=== PATIENT | female | born 1950 | race Caucasian/White ===

== ENCOUNTER → 2017-09-11 | Outpatient (CLI) | payer OTHER ==
[~2017-09-11] MED LIST: ALDACTONE25 MG PO; ASPIRIN81 M2 PO; ATORVASTATIN CA40 MG PO; CALCIUM 500 +1 EAC5 PO; CENTRUM SILVER1 EAC4 PO; FISH OIL 1,001000 M2 PO; FORTAMET1000 MG PO; KLOR-CON 1010 MEQ PO; LOTREL 10-20 M1 EACH PO; MOBIC7.5 MG PO; PROZAC20 MG PO; ULTRACET TABLET1 TAB PO
[2017-09-11 12:32] LABS: CALCIUM 9.8 mg/dL (8.5-10.1)
== END ==
LOC: MRI 10:53
PROVIDERS: Surgery
DX: C50.912 Malignant neoplasm of unspecified site of left female breast (principal)

== ENCOUNTER 2017-09-20 05:17 | Day surgery (SDC) | payer OTHER ==
[~2017-09-20] VITALS: Ht 160 cm; Wt 117.9 kg
--- NOTE | ~2017-09-20 | S ---
[facility] [address] [place] [address] SURGICAL PATH RPT PROCEDURE Name: LUIZ MORA [id number] Admission: 09/20/17 Date of : 50 Discharge: 09/20/17 Report #: [id number] Path Case #: [id number] PATHOLOGY REPORT DRAFT COLLECTION DATE: 09/20/2017 RECEIVED DATE: 09/20/2017 SPECIMEN(S) RECEIVED: A.Left breast lumpectomy short superior, long lateral B.Left axillary sentinel lymph node #1 C.Left axillary node adjacent to sentinel node
--- NOTE | ~2017-09-20 | H ---
[facility] [address] HISTORY AND PHYSICAL Name: LUIZ MORA Room #: 150-3 [facility]..#: [id number] Admission: 09/20/17 Attend Phys: Ernst Garcia MD Discharge: Date of : 50 Report #: [id number] THIS REPORT FOR: //name// CC: Ernst Butt DATE OF SERVICE: 09/20/2017 PREOPERATIVE DIAGNOSIS: Recently diagnosed left breast cancer. HISTORY OF PRESENT ILLNESS: The patient is a 67-year-old who was seen in the office middle of August. The patient had an abnormal mammogram. This was located at the 12 o'clock position, fairly high up in the left breast. This was described on mammogram to be 10 cm from the nipple. The patient had an ultrasound also done at the same time. There is shadowing at 12 o'clock position, both of these were felt to be suspicious. The patient has yearly mammogram. She did have a right breast biopsy about 9 years ago, which was benign. The patient does have extensive family history of breast cancer with mom having breast cancer at age 51. did well for 30 years and of unrelated second cancer. There is maternal aunt that had breast cancer at age 81. Maternal uncle had pancreatic cancer, second maternal uncle that had cancer of the urinary tract. There is also cancer on the father's side also. The patient does do self exam, has not noticed any mass. Denies any skin changes, no pain, no discharge. She is not on any hormones. The patient underwent a breast biopsy with ultrasound-guided on 09/03. The patient's path report came back with moderately differentiated invasive ductal carcinoma, grade 2/3. No definitive lymphovascular invasion. This was ER 78%, NC less than 1, Ki-67 of 1%, HER-2 was negative. The patient is here for left lumpectomy and sentinel node biopsy. She did have an MRI that showed a fairly significant size about 5 cm lesion. This was hard to see, a definite mass just distorted area on mammogram. She will have a bracketed localization and lumpectomy. PAST MEDICAL HISTORY: She has high blood pressure and elevated cholesterol. She diabetic, on metformin. PAST SURGICAL HISTORY: Gallbladder 1987, knee replacement in 2007. 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 ALLERGIES: She is not allergic to anything. MEDICATIONS: Lotrel 10/20 mg, Lipitor 40 once a day, Prozac 20 mg a day, Mobic 7.5 mg once a day, potassium chloride 10 mEq once a day, metformin 500 once a day, Ultracet, aspirin, Centrum, calcium, spironolactone. FAMILY HISTORY: Multiple cancers on both sides of the family. Father had septic shock at age 85. Mother ended up having a stomach cancer. [address] [address] HISTORY AND PHYSICAL Name: LUIZ MORA Room #: 150-3 [facility]..#: [id number] Admission: 09/20/17 Attend Phys: Ernst Garcia MD Discharge: Date of : 50 Report #: [id number] REVIEW OF SYSTEMS: No chest pain, shortness of breath, palpitation. The patient has had knee problems and knee replacement. PHYSICAL EXAMINATION: GENERAL: The patient is a well-nourished female, in no acute distress. She is obese. HEENT: Pupils react to light. Extraocular muscles are intact. NECK: Soft and supple, no masses. LUNGS: Clear to auscultation. HEART: Regular rate and rhythm. No murmur or gallop. ABDOMEN: Soft, nondistended, nontender. BREAST: The patient does have a mildly palpable mass in the upper part of the left breast, fairly high up. No axillary adenopathy. No supraclavicular adenopathy. EXTREMITIES: No cyanosis, clubbing or edema. Moves all extremities well. IMPRESSION AND PLAN: The patient is a 67-year-old with recently-diagnosed left breast cancer. The patient does have extensive family history of cancer including breast cancer in mom and maternal aunt. I did discuss with her obtaining a BRCA gene test and the patient would like to proceed with surgery and have that done later. She is not interested in bilateral mastectomy, even if she was BRCA positive. She feels tarun to have gone all these years without a cancer because of her extensive family history. The patient is brought in for a left lumpectomy and sentinel node biopsy. Procedure was discussed in detail. She will be seen by Oncology with Dr. Ash and Dr. Cuellar postoperatively. By: [id number] Ernst Garcia MD /nt
--- NOTE | ~2017-09-20 | O ---
[facility] [place] [address] OPERATIVE REPORT Name: LUIZ MORA Natalie Room #: DEP [facility].#: [id number] Admission: 09/20/17 Attend Phys: Ernst Garcia MD Discharge: 09/20/17 Date of : 50 Report #: [id number] THIS REPORT FOR: //name// CC: Ernst Butt MD DATE OF SERVICE: 09/20/2017 PREOPERATIVE DIAGNOSIS: Recently diagnosed left breast cancer. POSTOPERATIVE DIAGNOSIS: Recently diagnosed left breast cancer. PROCEDURES PERFORMED: 1. Left lumpectomy with preop bracketed needle localization. 2. Left axillary sentinel node biopsy with Neoprobe. SURGEON: Ernst Garcia MD ANESTHESIA: General anesthesia. COMPLICATIONS: None. BLOOD LOSS: 10 mL. PROCEDURE NOTE: With the patient under anesthesia, the left breast is prepped and draped in sterile fashion. The patient received preoperative antibiotics. Timeout was performed. The patient has 2 needles in the 12 o'clock position. An ellipse was drawn to include the needle and this ellipse of skin is being excised. This included the previous ultrasound-guided biopsy incision which is lateral to the main mass. Incision was carried through the skin and subcutaneous tissue. Cautery was used to obtain hemostasis. Dissection was then carried out superiorly and also inferiorly, freeing the skin and subcutaneous tissue from the breast tissue. Dissection was carried about a couple of centimeter superiorly and also inferiorly. The breast was then dissected into the substance of the breast. This was performed all the way around and starting superiorly and then medially, laterally and then going inferiorly. Once this lumpectomy was isolated, the dissection was carried to the posterior edge from the medial approach. This included the needle completely and the most lateral part breast tissue was then removed. There was some thickened breast tissue inferior and also laterally. The main tumor is somewhat palpable through the upper wound. Lumpectomy was removed. A generous portion was obtained. The suture was placed superiorly and laterally. The superior suture was cut short, the lateral suture was left longer. This was taken to mammography and mammography the areas of interest were well removed and they appears to be in the center part of the lumpectomy specimen. Specimen was [facility] [address] [place] [address] OPERATIVE REPORT Name: LUIZ MORA Room #: [facility].#: [id number] Admission: 09/20/17 Attend Phys: Ernst Garcia MD Discharge: 09/20/17 Date of : 50 Report #: [id number] then given to the pathologist after it returned from Radiology. The specimen was oriented for the pathologist. Irrigation was performed. Cautery was used to obtain hemostasis. Hemostasis was obtained. The deeper subcutaneous tissue was reapproximated with 3-0 PDS. The skin was then closed with 4-0 PDS running subcuticular fashion. Using separate instrument, the sentinel node was then biopsied. Towel was placed over the lumpectomy site. The axillary content was evaluated the Neoprobe. Activity was well seen in the axilla. Skin was anesthetized with 0.25% Marcaine and a transverse incision was made in the axilla measuring about 3 cm. After entering the axillary envelope, the Neoprobe guided to the area of the lymph node. There was a lymph node that was at this point visible. This was removed. This actually did not have the high activity, it had moderate activity of 1000 over a 10-second count. There is a lymph node slightly inferior to this that had the more higher activity about 500 per count and 10-second count of 7519-1077. This is labeled the sentinel node. The bed had minimal activity of 20-30. No palpable abnormal lymph nodes were detected. The axillary was then closed. Irrigation was performed. Hemostasis well obtained. Clips were used. The patient's superficial fascial layer of the axilla was closed with 4-0 PDS, skin was closed with 5-0 PDS. The specimen was sent to pathology and frozen section revealed no obvious macrometastasis to the node. The patient was awakened and taken to recovery room. Dermabond was used on the skin. A fluffy dressing and tape were applied. The patient tolerated the procedure well. By: [id number] Ernst Garcia MD /nt
--- NOTE | ~2017-09-20 | EKG ---
[address] [address] ELECTROCARDIOGRAM REPORT Name: LUIZ MORA Room #: [facility]#: [id number] Admission: 09/20/17 Attend Phys: Ernst Garcia MD Discharge: 09/20/17 Date of : 50 Report #: [id number] THIS REPORT FOR: //name// [facility] Test Date: 2017-09-20 Test Time: 08:13:06 Pat Name: LUIZ GANTCHER Department: Room: 150 3 Gender: F Women'S Apparel Salesperson: LISA : 1950 Requested By: Ernst Garcia Order Number: [id number] MD: Kobi Espino Measurements Intervals [place] Rate: 78 P: -28 MN: 170 QRS: 1 QRSD: 93 T: 44 QT: 380 QTc: 433 Interpretive Statements Sinus rhythm Baseline wander in lead(s) V3 Compared to ECG 09/28/2009 11:12:21 Ectopic atrial rhythm no longer present T-wave abnormality no longer present Electronically Signed On 09-21-2017 12:33:25 [employer] by Kobi Espino [email or web address] <ELECTRONICALLY SIGNED> By: Kobi Espino MD 09/21/17 1233 2 2 Kobi Espino MD /EPI
[~2017-09-20 05:17] MED LIST changes: +GLUCOPHAGE XR500 MG PO; +INDAPAMIDE2.5 MG PO; +KLOR-CON 10 ER10 MEQ PO; +METFORMIN HCL500 MG; +TUMS PO; +VITAMIN D35000 UNI1 PO; +ZANTAC 150MG T150 MG PO
[2017-09-20 08:24] LABS: CALCIUM 9.5 mg/dL (8.5-10.1); POTASSIUM 4.3 mmol/L (3.5-5.1)
[2017-09-20 09:35] VITALS: BP 123/85
[2017-09-20] MEDS ORDERED: NORCO 5-325 TA1 EACH PO (15:20)
[2017-09-20 15:46] VITALS: BP 123/85
== END 2017-09-20 16:20 | disposition home or self-care (01) ==
LOC: OR 05:17 → TBA 05:17 → OR 13:09
PROVIDERS: Surgery
DX: C50.912 Malignant neoplasm of unspecified site of left female breast (principal); I10 Essential (primary) hypertension; E78.00 Pure hypercholesterolemia, unspecified; E11.9 Type 2 diabetes mellitus without complications; K21.9 Gastro-esophageal reflux disease without esophagitis; F41.8 Other specified anxiety disorders; F32.89 Other specified depressive episodes; Z90.49 Acquired absence of other specified parts of digestive tract; Z79.899 Other long term (current) drug therapy; Z79.82 Long term (current) use of aspirin; E66.01 Morbid (severe) obesity due to excess calories; Z96.651 Presence of right artificial knee joint; Z98.890 Other specified postprocedural states; Z68.42 Body mass index [BMI] 45.0-49.9, adult; Z80.0 Family history of malignant neoplasm of digestive organs
CPT/HCPCS: 50010; 50101; 50386; 50417; 51301; 54118; 56525; 56526; 56527; 62110; 62900; 70005

== ENCOUNTER → 2018-10-30 | Outpatient (CLI) | payer OTHER ==
[~2018-10-30] MED LIST changes: +NORCO 5-325 TA1 EACH PO
== END ==
LOC: RAD 01:32
DX: Z12.31 Encounter for screening mammogram for malignant neoplasm of breast (principal)

== ENCOUNTER → 2019-12-24 | Outpatient (CLI) | payer OTHER | LOC: BC 08:51 | DX: Z12.31 Encounter for screening mammogram for malignant neoplasm of breast (principal) ==

== ENCOUNTER → 2021-01-09 | Outpatient (CLI) | payer OTHER | LOC: BC 08:42 | PROVIDERS: ATTEND Internal Medicine Hematology & Oncology | DX: Z12.31 Encounter for screening mammogram for malignant neoplasm of breast (principal) ==